=== PATIENT | male | born 1990 | race Caucasian/White ===

== ENCOUNTER 2018-06-24 06:41 | Emergency (ER) | payer SELFPAY ==
[~2018-06-24] VITALS: Ht 190.5 cm; Wt 63.5 kg
[~2018-06-24 06:41] MED LIST: AMOX-358 PO; PRD20T PO
--- OUTSIDE RECORDS SUMMARY | 2018-06-24 06:45 | XMS REPORT | Clinical Summary ---
Author Author [facility] Organization [facility] Address Unknown Phone Unavailable Care Team Providers Care Manager Hospitality Name Role Phone PP Unavailable Allergies Not on File Current Medications Not on file Active Problems Not on file Social History Tobacco Use Types Packs/Day Years Used Date Never Assessed Sex Assigned at Date Recorded Not on file Plan of Treatment Health Maintenance Due Date Last Done Comments Varicella Vaccines (1 of 01/09/2005 2 - 2-dose adolescent series) DTaP,Tdap,and Td Vaccines 01/09/2011 (1 - Tdap) Influenza Vaccine (#1) 2018 HPV Vaccines Aged Out No longer eligible based on patient's age to complete this topic Results Not on filefrom Last 3 Months
--- OUTSIDE RECORDS SUMMARY | 2018-06-24 06:45 | XMS REPORT | Clinical Summary ---
Author Author [facility] Address Unknown Phone Unavailable Care Team Providers Care Swatch Checker Name Role Phone PCP Unavailable Allergies Not on File Current Medications Not on file Active Problems Not on file Social History Tobacco Use Types Packs/Day Years Used Date Never Assessed Sex Assigned at Date Recorded Not on file Last Filed Vital Signs Not on file Plan of Treatment Not on file Results Not on filefrom Last 3 Months
--- OUTSIDE RECORDS SUMMARY | 2018-06-24 06:46 | XMS REPORT | Continuity of Care Document ---
Author Author [facility]. Organization [facility] Address Unknown Phone Unavailable Allergies Active Description Code Type Severity Reaction Onset Reported/Identified Relationship to Patient Clinical Status Yes No Known Drug Allergies [id number] Drug Allergy Unknown N/A 03/15/2015 Yes No Known Allergies NKA Miscellaneous Allergy Unknown N/A 11/14/2015 Medications There is no data. Problems Date Dx Coded Attending Type Code Diagnosis Diagnosed By 03/15/2015 AMANDA ROSS APRN Ot 461.1 AC FRONTAL SINUSITIS 03/15/2015 AMANDA ROSS APRN Ot 784.0 HEADACHE 11/14/2015 TATE SMYTH F17.210 NICOTINE DEPENDENCE, CIGARETTES, UNCOMPL 11/14/2015 TATE SMYTH G43.909 MIGRAINE, UNSP, NOT INTRACTABLE, WITHOUT 11/14/2015 TATE SMYTH R44.3 HALLUCINATIONS, UNSPECIFIED 11/14/2015 TATE SMYTH Z53.21 PROC/TRTMT NOT CRD OUT D/T PT LV BEF SEE Procedures There is no data. Results There is no data. Encounters ACCT No. Visit Date/Time Discharge Status Pt. Type Provider Facility Loc./Unit Complaint [id number] 11/14/2015 14:03:00 11/14/2015 15:17:00 DIS Emergency TATE SMYTH [facility] COL.ER [id number] 08/31/2017 11:35:00 08/31/2017 23:59:59 CLS Outpatient [id number] 03/15/2015 12:12:35 ACT Document Registration [id number] 03/15/2015 12:12:00 03/15/2015 13:44:00 DIS Emergency AMANDA ROSS APRN [facility] ER HEADACHE [id number] 06/24/2018 06:42:00 ACT Emergency BRYNN RUTLEDGE, LELAND Kothari [facility] ER ABD PAIN
[2018-06-24] MEDS ORDERED: FAMOTIDINE 20 MG (PEPCID) TABLET PO STA (07:06)
[2018-06-24] MEDS ORDERED: ONDANSETRON 4 MG/2 ML (SDV) Z0FRAN IV PRN (07:15)
[2018-06-24] MEDS ORDERED: LIDOCAINE 2% VISCOUS 15 ML UDC PO ONE (07:15)
[2018-06-24] MEDS ORDERED: ANTACID SUSP 30 ML UDC (MYLANTA) PO ONE (07:15)
[2018-06-24] MEDS ORDERED: PIPERACILLIN SODIUM/TAZOBACTAM 4.5 GM in NS (IVPB) 100 ML IV ONE (07:15)
[2018-06-24] MEDS ORDERED: LACTATED RINGERS 1,500 ML IV PRN (07:15)
[2018-06-24 07:31] LABS: BASOPHILS % (AUTO) 0 % (0-10); EOSINOPHILS # (AUTO) 0.1 10^3/uL (0.0-0.3); EOSINOPHILS % (AUTO) 1 % (0-10); HEMATOCRIT 42 % (40-54); HEMOGLOBIN 14.6 G/DL (13.3-17.7); LYMPHOCYTES # (AUTO) 1.7 X 10^3 (1.0-4.0); LYMPHOCYTES % (AUTO) 19 % (12-44); MEAN CORPUSCULAR HEMOGLOBIN 31 PG (25-34); MEAN CORPUSCULAR HGB CONC 35 G/DL (32-36); MEAN CORPUSCULAR VOLUME 88 FL (80-99); MEAN PLATELET VOLUME 9.4 FL (7.4-10.4); MONOCYTES # (AUTO) 0.6 X 10^3 (0.0-1.0); MONOCYTES % (AUTO) 6 % (0-12); NEUTROPHILS # (AUTO) 6.7 X 10^3 (1.8-7.8); NEUTROPHILS % (AUTO) 74 % (42-75); PLATELET COUNT 256 10^3/uL (130-400); RED BLOOD COUNT 4.79 10^6/uL (4.35-5.85); RED CELL DISTRIBUTION WIDTH 12.3 % (10.0-14.5); WHITE BLOOD COUNT 9.1 10^3/uL (4.3-11.0)
--- NOTE | 2018-06-24 07:34 | ED Abdominal Pain ---
General Chief Complaint: Abdominal/GI Problems Stated Complaint: ABD PAIN Source of Information: Patient Exam Limitations: No Limitations History of Present Illness Date Seen by Provider: Jun 24, 2018 Time Seen by Provider: 06:56 Initial Comments Patient presents to ER by private conveyance with chief complaint the past 4 days she's had some intermittent crampy abdominal pain nausea without vomiting and occasional loose stools. He does not have a history of a lot of this. He says his pain is in his periumbilical and left lower quadrant. He says it woke him up this morning from sleep bringing him to tears but now is about 4-5 out of 10 at rest. He is not taking anything for it. He does not have any known medical history or abdominal surgeries. He says when he was in high school or just shortly thereafter he was diagnosed with a much stomach ulcers and had those treated. However he lost a lot of weight from 260 pounds down to his current 150 pounds and is despite trying to eat has never been able to again that weight back. He says he has early satiety and then an hour later he'll feel hungry again. This was about 8-10 years ago. He's never followed up with a doctor or GI doctor. No history of colonoscopy just an EGD. He is not taking any medications now. He does occasionally smoke marijuana and says that he smoked some last couple days trying to help with the nausea but it did not help. No fevers chills or sick contacts. No camping, travel outside the [facility] drinking unsafe water. Allergies and Home Medications Allergies Coded Allergies: No Known Drug Allergies (Unverified , 03/15/15) Home Medications Prednisone 20 Mg Tab, 40 MG PO DAILY Prescribed by: AMANDA ROSS on 03/15/15 3957 Patient Home Medication List Home Medication List Reviewed: Yes Review of Systems Review of Systems Constitutional: No chills, No diaphoresis EENTM: No Blurred Vision, No Double Vision Respiratory: Denies Cough, Denies Shortness of Air Cardiovascular: Denies Chest Pain, Denies Lightheadedness Gastrointestinal: Denies Abdomen Distended; Abdominal Pain; Denies Blood Streaked Stools, Denies Constipated; Diarrhea (occasional), Nausea; Denies Rectal Bleeding, Denies Vomiting Genitourinary: Denies Burning, Denies Discharge Musculoskeletal: No back pain, No joint pain Skin: No pruritus, No rash Past Dmcomnu-Dtvoab-Jbdere Hx Patient Social History Alcohol Use: Denies Use Recreational Drug Use: No Smoking Status: Current Everyday Smoker Recent Foreign Travel: No Contact w/Someone Who Travel: No Past Medical History Testicular Reproductive Disorders: No Scoliosis Adverse Reaction/Blood Tranf: No Physical Exam Vital Signs Vital Signs - First Documented 06/24/18 06:50 Temp 97.5 Pulse 89 Resp 18 B/P (MAP) 146/92 (110) Pulse Ox 99 O2 Delivery Room Air Capillary Refill : Height/Weight/BMI Height: 6'3" Weight: 150lbs. oz. 68.915871tx; BMI Method:Stated General Appearance: WD/WN, mild distress HEENT: PERRL/EOMI, normal ENT inspection, pharynx normal (oropharynx is mildly dry) Respiratory: chest non-tender, lungs clear, normal breath sounds, no respiratory distress, no accessory muscle use Cardiovascular: normal peripheral pulses, regular rate, rhythm, no edema Peripheral Pulses: 2+ Dorsalis Pedis (R), 2+ Left Dors-Pedis (L) Gastrointestinal: normal bowel sounds, soft; No rebound; tenderness (mild periumbilical and left lower quadrant tenderness.), other (negative for Rovsing sign, psoas sign, tenderness over McBurney's point or rebound tenderness) Focused Exam Lactate Level 06/24/18 07:18: Lactic Acid Level 0.76 Lactic Acid Level Laboratory Tests Test 06/24/18 07:18 Lactic Acid Level 0.76 MMOL/L (0.50-2.00) Progress/Results/Core Measures Results/Orders Lab Results Laboratory Tests Test 06/24/18 07:18 06/24/18 07:50 Range/Units White Blood Count 9.1 4.3-11.0 10^3/uL Red Blood Count 4.79 4.35-5.85 10^6/uL Hemoglobin 14.6 13.3-17.7 G/DL Hematocrit 42 40-54 % Mean Corpuscular Volume 88 80-99 FL Mean Corpuscular Hemoglobin 31 25-34 PG Mean Corpuscular Hemoglobin Concent 35 32-36 G/DL Red Cell Distribution Width 12.3 10.0-14.5 % Platelet Count 256 130-400 10^3/uL Mean Platelet Volume 9.4 7.4-10.4 FL Neutrophils (%) (Auto) 74 42-75 % Lymphocytes (%) (Auto) 19 12-44 % Monocytes (%) (Auto) 6 0-12 % Eosinophils (%) (Auto) 1 0-10 % Basophils (%) (Auto) 0 0-10 % Neutrophils # (Auto) 6.7 1.8-7.8 X 10^3 Lymphocytes # (Auto) 1.7 1.0-4.0 X 10^3 Monocytes # (Auto) 0.6 0.0-1.0 X 10^3 Eosinophils # (Auto) 0.1 0.0-0.3 10^3/uL Basophils # (Auto) 0.0 0.0-0.1 10^3/uL Erythrocyte Sedimentation Rate 2 0-15 MM/HR Prothrombin Time 13.4 12.2-14.7 SEC INR Comment 1.0 0.8-1.4 Activated Partial Thromboplast Time 35 24-35 SEC Sodium Level 142 135-145 MMOL/L Potassium Level 4.0 3.6-5.0 MMOL/L Chloride Level 108 H 98-107 MMOL/L Carbon Dioxide Level 23 21-32 MMOL/L Anion Gap 11 5-14 MMOL/L Blood Urea Nitrogen 16 7-18 MG/DL Creatinine 0.97 0.60-1.30 MG/DL Estimat Glomerular Filtration Rate > 60 BUN/Creatinine Ratio 16 Glucose Level 90 70-105 MG/DL Lactic Acid Level 0.76 0.50-2.00 MMOL/L Calcium Level 9.7 8.5-10.1 MG/DL Corrected Calcium 8.5-10.1 MG/DL Total Bilirubin 0.6 0.1-1.0 MG/DL Aspartate Amino Transf (AST/SGOT) 21 5-34 U/L Alanine Aminotransferase (ALT/SGPT) 14 0-55 U/L Alkaline Phosphatase 51 40-136 U/L C-Reactive Protein High Sensitivity 0.15 0.00-0.50 MG/DL Total Protein 7.1 6.4-8.2 GM/DL Albumin 4.6 H 3.2-4.5 GM/DL Lipase 56 8-78 U/L Urine Color YELLOW Urine Clarity CLEAR Urine pH 7 5-9 Urine Specific [place] 1.010 L 1.016-1.022 Urine Protein NEGATIVE NEGATIVE Urine Glucose (UA) NEGATIVE NEGATIVE Urine Ketones NEGATIVE NEGATIVE Urine Nitrite NEGATIVE NEGATIVE Urine Bilirubin NEGATIVE NEGATIVE Urine Urobilinogen NORMAL NORMAL MG/DL Urine Leukocyte Esterase NEGATIVE NEGATIVE Urine RBC (Auto) NEGATIVE NEGATIVE Urine RBC NONE /HPF Urine WBC NONE /HPF Urine Squamous Epithelial Cells RARE /HPF Urine Crystals NONE /LPF Urine Bacteria NEGATIVE /HPF Urine Casts NONE /LPF Urine Mucus NEGATIVE /LPF Urine Culture Indicated NO Urine Opiates Screen NEGATIVE NEGATIVE Urine Oxycodone Screen NEGATIVE NEGATIVE Urine Methadone Screen NEGATIVE NEGATIVE Urine Propoxyphene Screen NEGATIVE NEGATIVE Urine Barbiturates Screen NEGATIVE NEGATIVE Ur Tricyclic Antidepressants Screen NEGATIVE NEGATIVE Urine Phencyclidine Screen NEGATIVE NEGATIVE Urine Amphetamines Screen NEGATIVE NEGATIVE Urine Methamphetamines Screen NEGATIVE NEGATIVE Urine Benzodiazepines Screen NEGATIVE NEGATIVE Urine Cocaine Screen NEGATIVE NEGATIVE Urine Cannabinoids Screen POSITIVE H NEGATIVE My Orders Orders - LELAND SWAIN Cbc With Automated Diff (06/24/18 07:06) Comprehensive Metabolic Panel (06/24/18 07:06) Blood Culture (06/24/18 07:06) Sputum Culture (06/24/18 07:06) Urinalysis (06/24/18 07:06) Urine Culture (06/24/18 07:06) Protime With Inr (06/24/18 07:06) Partial Thromboplastin Time (06/24/18 07:06) Chest 1 View, Ap/Pa Only (06/24/18 07:06) Saline Lock/Iv-Start (06/24/18 07:06) Saline Lock/Iv-Start (06/24/18 07:06) Vital Signs Adult Sepsis Patie Q15M (06/24/18 07:06) Ondansetron Injection (Zofran Injectio (06/24/18 07:15) O2 (06/24/18 07:06) Remove Rings In Anticipation O (06/24/18 07:06) Lactic Acid Analyzer (06/24/18 07:06) Lactated Ringers (Lr 1000 Ml Iv Solution (06/24/18 07:15) Piperacillin Sodium/Tazobactam (Zosyn Vi (06/24/18 07:15) Lidocaine 2% Viscous 15 Ml (Xylocaine Vi (06/24/18 07:15) Famotidine Tablet (Pepcid Tablet) (06/24/18 07:06) Antacid Suspension (Mylanta Suspension (06/24/18 07:15) Lipase (06/24/18 07:37) Hs C Reactive Protein (06/24/18 07:37) Erythrocyte Sedimentation Rate (06/24/18 07:37) Drug Screen Stat (Urine) (06/24/18 07:55) Ct Abd/Pelv W (Appendicitis) (06/24/18 08:06) Iohexol Injection (Omnipaque 350 Mg/Ml 1 (06/24/18 09:15) Contrast Received (Contrast Received) (06/24/18 09:15) Sodium Chloride Flush (Catheter Flush Sy (06/24/18 09:15) Ns (Ivpb) (Sodium Chloride 0.9%) (06/24/18 09:15) Medications Given in ED Current Medications Medications Dose Ordered Sig/Aldair Route Start Time Stop Time Status Last Admin Dose Admin Al Hydrox/Mg Hydrox/Simethicone 30 ml ONCE ONCE PO 06/24/18 07:15 06/24/18 07:16 DC 06/24/18 07:28 30 ML Iohexol 100 ml ONCE ONCE IV 06/24/18 09:15 06/24/18 09:16 DC 06/24/18 09:15 100 ML Lactated Ringer's 1,500 ml @ 1,500 mls/hr PRN PRN IV 06/24/18 07:15 06/24/18 07:25 1,500 MLS/HR Lidocaine HCl 15 ml ONCE ONCE PO 06/24/18 07:15 06/24/18 07:16 DC 06/24/18 07:28 15 ML Ondansetron HCl 4 mg PRN PRN IV 06/24/18 07:15 06/24/18 07:29 DC 06/24/18 07:25 4 MG Piperacillin Sod/ Tazobactam Sod 4.5 gm/Sodium Chloride 100 ml @ 200 mls/hr ONCE ONCE IV 06/24/18 07:15 06/24/18 07:44 DC 06/24/18 08:43 200 MLS/HR Sodium Chloride 250 ml ONCE ONCE IV 06/24/18 09:15 06/24/18 09:16 DC 06/24/18 09:15 80 ML Vital Signs/I&O 06/24/18 06:50 Temp 97.5 Pulse 89 Resp 18 B/P (MAP) 146/92 (110) Pulse Ox 99 O2 Delivery Room Air Progress Progress Note #1: Time: 07:35 Progress Note The patient's tachycardic possibly owing to sepsis versus dehydration with this last 4 days of GI symptoms. It's concerning about his weight loss over the past 10 years and grandma recommend he follow up outpatient with GI or surgery for endoscopy and diagnosis possible IBS versus IBD. His current symptoms could be inflammatory versus infectious. We'll check a lipase given a GI cocktail and set up for labs to include a fluid bolus and Zosyn on the off chance he's having an infectious colitis. If his pain does not improve with GI cocktail her Toradol or if his white count is mildly elevated we'll consider getting a CT of his abdomen and pelvis as well. Progress Note #2: Time: 10:10 Progress Note The patient's symptoms are considerably improved with the GI cocktail. His nausea is gone after the Zofran. We'll send him home with Zofran, omeprazole, Carafate and instructions to follow-up with Dr. Seay, General Surgery to consider outpatient workup for IBS versus IBD. Illness this is an exacerbation versus maybe a viral gastroenteritis. Nothing appears acute on radiologic imaging or laboratory examination. Diagnostic Imaging Diagonstic Imaging: Xray Plain Films/CT/US/NM/MRI: chest (1v) Comments NAME: [facility] REC#: [id number] PT STATUS: REG ER : 1990 PHYSICIAN: LELAND SWAIN MD ADMIT DATE: 06/24/18/ER Draft Date of Exam:06/24/18 CHEST 1 VIEW, AP/PA ONLY INDICATION: Chest discomfort. TECHNIQUE: Single view chest 7:40 AM. CORRELATION STUDY: None FINDINGS: Rightward curvature of the thoracic spine results in some distortion of the chest anatomy. Given this, heart size, mediastinum and vasculature overall within normal limits. The lungs are clear with no consolidating infiltrate. There is no significant effusion or pneumothorax. IMPRESSION: 1. Negative acute findings of the chest. Dictated on workstation # [id number] Dict: 06/24/18 0749 Trans: 06/24/18 0751 CV [id number] Interpreted by: ANGELICA PUENTE DO Electronically signed by: Reviewed: Reviewed by Me Diagonstic Imaging: CT (with contrast) Plain Films/CT/US/NM/MRI: abdomen, pelvis Comments [facility]. [place], [place] NAME: [facility] REC#: [id number] PT STATUS: REG ER : 1990 PHYSICIAN: LELAND SWAIN MD ADMIT DATE: 06/24/18/ER Draft Date of Exam:06/24/18 CT ABD/PELV W (APPENDICITIS) PROCEDURE: CT abdomen and pelvis with contrast, rule out appendicitis. TECHNIQUE: Multiple contiguous axial images were obtained through the abdomen and pelvis after the administration of intravenous contrast. INDICATION: Nausea and abdominal pain for 4 days. COMPARISON: No prior studies are available for comparison. FINDINGS: The lung bases are clear. No discrete liver mass is seen. The gallbladder is unremarkable. The pancreas and spleen are unremarkable. No adrenal mass is detected. The kidneys are unremarkable. The aorta is non-aneurysmal. The appendix does not appear to be thick-walled. There is the absence of intraperitoneal fat; therefore, evaluation for stranding is difficult. No definite inflammatory changes are seen. No free fluid in the abdomen is seen. There is a small amount of free fluid in the pelvis. The bladder is moderately distended. IMPRESSION: Essentially unremarkable CT of the abdomen and pelvis. No acute feature is identified. Dictated on workstation # [id number] Dict: 06/24/18 0938 Trans: 06/24/18 0952 [facility] [id number] Interpreted by: KUSHAL CACERES MD Electronically signed by: Reviewed: Reviewed by Me Departure Impression Primary Impression: Gastritis Qualified Codes: K29.00 - Acute gastritis without bleeding Disposition: HOME, SELF-CARE Condition: Improved Departure-Patient Inst. Decision time for Depature: 10:14 Referrals: NATE SEAY,LOCAL PHYSICIAN (PCP) Primary Care Physician Patient Instructions: Gastritis (DC), LOCAL PHYSICIAN LIST Add. Discharge Instructions: Zofran 4 mg under the tongue every 6 hours as needed for nausea or vomiting. Carafate 1 tablet half hour prior to meals and at bedtime for the next 2 weeks. Omeprazole 40 mg daily for the next 4 weeks. Tylenol 1000 mg every 8 hours in addition to ibuprofen 800 mg every 8 hours as well as heat and distraction for pain. Call Dr. Seay, General Surgery and request an appointment for follow-up possible endoscopy versus workup of irritable bowel versus inflammatory bowel etc. If your pain becomes severe, out of control or you have fever about 102.5 return to the ER otherwise plan to establish care with a primary care doctor to help manage your abdominal problems as well as workup your chronic weight loss. All discharge instructions reviewed with patient and/or family. Voiced understanding. Scripts Omeprazole (Omeprazole) 40 Mg Capsule.dr 40 MG PO DAILY for 30 Days, #30 CAP 0 Refills Prov: LELAND SWAIN 06/24/18 Sucralfate (Carafate) 1 Gm Tablet 1 GM PO QIDACHS for 14 Days, #56 TAB 0 Refills Prov: LELAND SWAIN 06/24/18 Ondansetron (Ondansetron Odt) 4 Mg Tab.rapdis 4 MG PO Q6H PRN for NAUSEA/VOMITING, #8 TAB 0 Refills Prov: LELAND SWAIN 06/24/18 Work/School Note: Work Release Form Date Seen in the Emergency Department: Jun 24, 2018 Return to Work: Jun 25, 2018 Restrictions: No Restrictions Copy Copies To 1: NATE SEAY DO LELAND SWAIN Jun 24, 2018 07:34
[2018-06-24 07:43] LABS: PROTHROMBIN TIME PATIENT 13.4 SEC (12.2-14.7)
[2018-06-24 07:50] LABS: ALANINE AMINOTRANSFERASE 14 U/L (0-55); ALBUMIN 4.6 GM/DL (3.2-4.5); ALKALINE PHOSPHATASE 51 U/L (40-136); BILIRUBIN,TOTAL 0.6 MG/DL (0.1-1.0); BUN/CREATININE RATIO 16; CALCIUM 9.7 MG/DL (8.5-10.1); CARBON DIOXIDE 23 MMOL/L (21-32); CHLORIDE 108 MMOL/L (98-107); CREATININE SERUM 0.97 MG/DL (0.60-1.30); GFR ESTIMATED > 60; GLUCOSE 90 MG/DL (70-105); SODIUM 142 MMOL/L (135-145); TOTAL PROTEIN 7.1 GM/DL (6.4-8.2)
--- NOTE | 2018-06-24 07:51 | Diagnostic Imaging Report ---
INDICATION: Chest discomfort. TECHNIQUE: Single view chest 7:40 AM. CORRELATION STUDY: None FINDINGS: Rightward curvature of the thoracic spine results in some distortion of the chest anatomy. Given this, heart size, mediastinum and vasculature overall within normal limits. The lungs are clear with no consolidating infiltrate. There is no significant effusion or pneumothorax. IMPRESSION: 1. Negative acute findings of the chest. Dictated by: Dictated on workstation # [id number]
[2018-06-24 07:55] LABS: BILIRUBIN,URINE NEGATIVE (NEGATIVE); CLARITY,URINE CLEAR; COLOR,URINE YELLOW; GLUCOSE, URINE (UA) NEGATIVE (NEGATIVE); KETONES,URINE NEGATIVE (NEGATIVE); LEUKOCYTE ESTERASE ,URINE NEGATIVE (NEGATIVE); NITRITE,URINE NEGATIVE (NEGATIVE); PH,URINE 7 (5-9); PROTEIN,URINE NEGATIVE (NEGATIVE); UROBILINOGEN,URINE NORMAL (NORMAL)
[2018-06-24 08:08] LABS: BACTERIA,URINE NEGATIVE /HPF; SQUAMOUS EPITHELIAL CELL,UR RARE /HPF
[2018-06-24 08:16] LABS: AMPHETAMINE SCREEN, URINE NEGATIVE (NEGATIVE); BARBITURATE SCREEN URINE NEGATIVE (NEGATIVE); BENZODIAZEPINES SCREEN URINE NEGATIVE (NEGATIVE); CANNABINOID SCREEN, URINE POSITIVE (NEGATIVE); COCAINE SCREEN URINE NEGATIVE (NEGATIVE); METHADONE STAT NEGATIVE (NEGATIVE); METHAMPHETAMINE SCREEN URINE S NEGATIVE (NEGATIVE); OPIATE SCREEN URINE NEGATIVE (NEGATIVE); OXYCODONE STAT NEGATIVE (NEGATIVE); PROPOXYPHENE STAT NEGATIVE (NEGATIVE); TRICYCLIC ANTIDEPRESSANTS SCRE NEGATIVE (NEGATIVE)
[2018-06-24] MEDS ORDERED: NS 250 ML (IVPB) BAG IV ONE (09:15)
[2018-06-24] MEDS ORDERED: RECEIVED CONTRAST (Hold Metformin) IV SCH (09:15)
[2018-06-24] MEDS ORDERED: IOHEXOL 350 MG/ML 100 ML (OMNIPAQUE 350) VIAL IV ONE (09:15)
[2018-06-24] MEDS ORDERED: CATHETER FLUSH 10 ML SYR IV PRN (09:15)
--- NOTE | 2018-06-24 09:52 | Diagnostic Imaging Report ---
PROCEDURE: CT abdomen and pelvis with contrast, rule out appendicitis. TECHNIQUE: Multiple contiguous axial images were obtained through the abdomen and pelvis after the administration of intravenous contrast. INDICATION: Nausea and abdominal pain for 4 days. COMPARISON: No prior studies are available for comparison. FINDINGS: The lung bases are clear. No discrete liver mass is seen. The gallbladder is unremarkable. The pancreas and spleen are unremarkable. No adrenal mass is detected. The kidneys are unremarkable. The aorta is non-aneurysmal. The appendix does not appear to be thick-walled. There is the absence of intraperitoneal fat; therefore, evaluation for stranding is difficult. No definite inflammatory changes are seen. No free fluid in the abdomen is seen. There is a small amount of free fluid in the pelvis. The bladder is moderately distended. IMPRESSION: Essentially unremarkable CT of the abdomen and pelvis. No acute feature is identified. Dictated by: Dictated on workstation # [id number]
[2018-06-24] MEDS ORDERED: OMEP40CA36 PO (10:17)
[2018-06-24] MEDS ORDERED: SUCR1TAB36 PO (10:17)
[2018-06-24] MEDS ORDERED: ONDA4TAB11 PO (10:17)
[2018-06-24 10:40] VITALS: BP 112/72
== END 2018-06-24 10:40 | disposition home or self-care (01) ==
LOC: EDUNIT# 06:41 → ER 06:42
DX: K29.70 Gastritis, unspecified, without bleeding (principal); F12.10 Cannabis abuse, uncomplicated; F17.200 Nicotine dependence, unspecified, uncomplicated; Z79.52 Long term (current) use of systemic steroids
CPT/HCPCS: 36415; 71045; 74177; 80053; 80306; 81000; 83605; 83690; 85025; 85610; 85652; 85730; 86141; 87040; 87088